=== PATIENT | male | born 1965 | race Caucasian/White ===

== ENCOUNTER → 2019-12-12 | Outpatient (CLI) | payer OTHER ==
--- NOTE | 2019-12-12 20:38 | CONS ---
CONSULTATION DATE OF SERVICE: 12/12/2019 This patient is a 54-year-old gentleman who has been evaluated in the sleep center for obstructive sleep apnea-hypopnea syndrome. HISTORY OF PRESENT ILLNESS/SLEEP-WAKE EVALUATION: Patient's usual sleep schedule is from 10 p.m. to 5 a.m. on working days and from about 11 p.m. until 5 a.m. on weekends. No problems with falling asleep. No TV in bedroom. The patient sleeps in different positions, including sides. He has loud snoring, according to his , witnessed episodes of stopped breathing during sleep. The patient wakes up from sleep with choking, nocturia, gasping for air, dry mouth, grinding teeth and sleeptalking up to 6 times at night, and again he has about 6 episodes of nocturia at night. In the morning the patient wakes up tired, falling asleep during the day. [place] Sleepiness Scale is significantly increased at 15. He takes up to 3 naps per day. He feels better after naps. He may see vivid dreams during the naps. Positive history of hypnagogic hallucinations. No history of sleep paralysis. No history of cataplexy. PAST MEDICAL HISTORY: Positive for headaches and back pain. PAST SURGICAL HISTORY: Vasectomy, surgery for broken right ankle. MEDICATIONS: [id number] medications for back pain and headaches. SOCIAL HISTORY: Positive for smoking for about 40 years, presently up to 2 packs a day. Alcohol consumption up to 8 to 10 beers per night. FAMILY HISTORY: Arthritis, snoring, thyroid problems, diabetes. REVIEW OF SYSTEMS: Multiple awakenings from sleep. Significant excessive daytime sleepiness. PHYSICAL EXAMINATION: GENERAL: A pleasant gentleman without distress. VITAL SIGNS: BP 153/91, HR 85, RR 16, height 5 feet 7-1/4 inches, weight 268.0, body mass index 41.7, temperature 98.0, oxygen saturation at room air 94%. HEENT: PERRLA, EOMI. Evaluation of oropharynx showed tongue protrudes midline. Extremely low position of soft palate. Mallampati IV. Slight restriction of nasal breathing. NECK: Supple. No JVD. Thyroid is not palpable. Extremely wide neck at 23-1/3 inches in circumference. LUNGS: Clear to percussion and to auscultation. Good air exchange. No wheezing or rhonchi. HEART: S1, S2 regular. No murmurs, gallops or rubs. ABDOMEN: Obese. EXTREMITIES: No clubbing or cyanosis. CURB SUPERVISOR: Awake, alert, and oriented X3. Cranial nerves 2 to 7 intact. There is no fasciculation or atrophy. noted. No focal deficits observed. IMPRESSION: 1. Loud snoring, witnessed episodes of stopped breathing during sleep, awakenings from sleep with gasping for air and nocturia up to 6 times per night, excessive daytime sleepiness, extremely wide neck at 23-1/3 inches in circumference, extremely low position of soft palate, Mallampati IV; obstructive sleep apnea-hypopnea syndrome. 2. Obesity with body mass index of 41.7. 3. Significant excessive daytime sleepiness. 4. Positive history of hypnagogic hallucinations. 5. Dreaming during naps. 6. Differential diagnosis might include hypersomnia, including narcolepsy. 7. Headaches. 8. Back pain. 9. Status post vasectomy. 10.Status post fracture of right ankle and surgical treatment. PLAN: 1. Polysomnography for evaluation of patient's breathing during sleep. 2. CPAP/BiPAP titration if sleep study confirms obstructive sleep apnea-hypopnea syndrome. 3. Preferable position during sleep on the side. 4. No driving if patient feels any sleepiness. 5. I will see patient for follow up visit to explain results of testing and following plan. Thank you very much for referring this patient for consultation. Sincerely, Jesse Gore MD, PhD, FAASM Diplomat of [employer] [facility] [place] MMODL / CANDISN: [id number] /
== END | disposition home or self-care (01) ==
LOC: SLEEP 15:28
PROVIDERS: ATTEND Internal Medicine
DX: G47.33 Obstructive sleep apnea (adult) (pediatric) (principal); E66.9 Obesity, unspecified; Z68.41 Body mass index [BMI] 40.0-44.9, adult; R51 Headache; M54.9 Dorsalgia, unspecified; Z98.52 Vasectomy status; F17.210 Nicotine dependence, cigarettes, uncomplicated; Z86.59 Personal history of other mental and behavioral disorders; Z96.661 Presence of right artificial ankle joint
CPT/HCPCS: 99211

== ENCOUNTER → 2020-05-13 | Outpatient (CLI) | payer OTHER ==
--- NOTE | 2020-05-14 12:50 | SFUN ---
SLEEP CENTER FOLLOW UP NOTE DATE OF SERVICE: 05/13/2020. 54-year-old gentleman who has been followed in Sleep Center for treatment of extremely severe obstructive sleep apnea-hypopnea syndrome. I discussed results of sleep studies with the patient in detail. Diagnostic sleep study showed extremely severe sleep apnea with apnea-hypopnea index 88.4, oxygen desaturation 56.6% with total oxygen level below normal for 130.7 minutes. During titration, respiration was mostly under control with pressure 19/14 cm of water. The patient was started on treatment with CPAP and according to him, he feels much better with the machine. He sleeps much better. Sometimes he has problems with the mask. I checked his BiPAP unit. The pressure is 18/14 cm of water. Extremely highly leak, it is 96 L/minute. Apnea-hypopnea index reading is 514.2 and usage is 0 times for more than 4 hours counting 30 nights. The patient explained that he is using machine every night for many hours and he cannot understand why the numbers are so low. [place] Sleepiness Scale today 6, which is in normal range. PHYSICAL EXAM: Patient in no distress BP 143/92, HR 94, RR 16, weight 261, temp 99.1. Oxygen saturation: 95%. HEENT: PERRLA, EOMI, evaluation of oropharynx showed tongue protrudes midline. NECK: Supple, no JVD. Thyroid is not palpable. LUNGS: Clear to percussion and to auscultation. Good air exchange. No wheezing or rhonchi. HEART: S1, S2 regular. No murmurs, gallops, or rubs. ABDOMEN: Obese. EXTREMITIES: No clubbing or cyanosis. FLAP MAKER: Awake, alert, and oriented X3. Cranial nerves 2 to 7 intact. There is no fasciculation or atrophy. noted. No focal deficits observed. IMPRESSION: 1. Extremely severe obstructive sleep apnea-hypopnea syndrome with severe oxygen desaturation by results of titration breathing normalized on BiPAP on the high level of 19/14 cm of water. Clinically, patient feels better with BiPAP machine, but reading from the machine showed low compliance and still high apnea-hypopnea index, but significantly better than during diagnostic night presently rating from the machine 14.2 during diagnostic night. Apnea-hypopnea index 88.4. 2. Obesity. 3. History of significant excessive daytime sleepiness, improved on treatment with BiPAP. 4. History of headaches. 5. Back pain. 6. Status post vasectomy. 7. Status post right ankle fracture and surgical treatment. PLAN: 1. Patient will continue to use BiPAP equipment every night for the whole night. 2. All necessary filters will be replaced. 3. Losing weight. 4. Sleep hygiene with regular time in bed for 7-1/2 hours. 5. No driving if feeling sleepiness. 6. I will see the patient for followup visit soon about 6 weeks to recheck the situation, and if necessary to make any adjustments. Thank you very much for allowing me to participate in management of your patient. Sincerely, Jesse Gore MD, PhD, FAASM Diplomat of [employer] [place] [employer] Host/Hostess of [facility] [place] MMCASSIL / AILYN: [id number] /
== END | disposition home or self-care (01) ==
LOC: SLEEP 16:22
PROVIDERS: ATTEND Internal Medicine
DX: G47.33 Obstructive sleep apnea (adult) (pediatric) (principal); M54.9 Dorsalgia, unspecified; E66.9 Obesity, unspecified; Z86.69 Personal history of other diseases of the nervous system and sense organs; Z98.52 Vasectomy status; Z87.81 Personal history of (healed) traumatic fracture